=== PATIENT | female | born 1980 | race Caucasian/White ===

== ENCOUNTER 2020-09-21 11:51 | Emergency (ER) | payer OTHER, SELFPAY ==
[2020-09-21 12:15] VITALS: BP 155/101; PULSE 98; RESP 16; TEMP 36.4; O2SAT 100
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
== END 2020-09-21 17:11 | disposition home or self-care (01) ==
PROVIDERS: Emergency Provider Nurse Practitioner Family
DX: H66.90 Otitis media, unspecified, unspecified ear (principal); I10 Essential (primary) hypertension
CPT/HCPCS: 99213; G0463